=== PATIENT | female | born 1960 | race Caucasian/White ===

== ENCOUNTER 2016-06-13 08:01 | Day surgery (SDC) | payer OTHER ==
[~2016-06-13] VITALS: Ht 157.5 cm; Wt 65.3 kg
[2016-06-13] MEDS ORDERED: LIPITOR (08:56)
[2016-06-13] MEDS ORDERED: METFORMIN (08:56)
[2016-06-13] MEDS ORDERED: NAPROXEN (08:56)
[2016-06-13] MEDS ORDERED: GLIPIZIDE (08:56)
[2016-06-13 08:57] VITALS: Ht 157.5 cm; Wt 65.3 kg
[2016-06-13 09:24] VITALS: BP 121/66; PULSE 51; RESP 20
[2016-06-13] MEDS ORDERED: MIDAZOLAM 1 MG/ML 2 ML INJ ONE ×2 (09:44)
[2016-06-13] MEDS ORDERED: FENTAnyl 50 MCG/ML VIAL ONE (09:44)
[2016-06-13 10:00] VITALS: BP 108/61; PULSE 60; RESP 18
--- NOTE | 2016-06-13 11:27 | GILP ---
DATE OF PROCEDURE: 06/13/2016 PREOPERATIVE DIAGNOSIS: Screening colonoscopy to rule out colon polyps. POSTOPERATIVE DIAGNOSES: Minimal internal and minimal external hemorrhoids and a few diverticula, s mall sized, no bleeding noted. DESCRIPTION OF PROCEDURE: After informed written consent was obtained, the patient was asked to lie on the left lateral side' 4 mg Versed and 75 mcg of fentanyl was given as intravenous anesthesia. When the patient became somnolent, the Olympus video colonoscope was introduced into the rectum and scope was advanced all the way to the cecum. Appendiceal opening and ileocecal valve were identifie d. No polyps, no carcinoma, no colitis noted. Scope at this time was withdrawn. On the way out, c areful evaluation was carried out, and minimal internal hemorrhoids were noted on retroflexion. Whe n the scope was withdrawn, minimal external hemorrhoids noted which are small in size, low grade, no bleeding noted. The procedure was terminated. PLAN: Recommend a high fiber diet. Repeat colonoscopy in 10 years. Dictated By: ALEJANDRA ROMAN/NTS Conf#: [id number] DID#: [id number] CC: Comfort Owen MD;*EndCC*
== END 2016-06-13 13:57 | disposition home or self-care (01) ==
LOC: GIL 08:01
PROVIDERS: ATTEND Internal Medicine Gastroenterology
DX: Z12.11 Encounter for screening for malignant neoplasm of colon (principal); K64.8 Other hemorrhoids; K64.4 Residual hemorrhoidal skin tags; K57.90 Diverticulosis of intestine, part unspecified, without perforation or abscess without bleeding; E11.9 Type 2 diabetes mellitus without complications
CPT/HCPCS: 45378; J2250; J3010; Z7610

== ENCOUNTER 2016-12-24 14:57 | Emergency (ER) | payer OTHER ==
[~2016-12-24] VITALS: Wt 64.5 kg
[~2016-12-24 14:57] MED LIST: GLIPIZIDE; LIPITOR; METFORMIN; NAPROXEN
== END 2016-12-24 17:55 | disposition left against medical advice (07) ==
LOC: E/R 14:57
DX: Z53.21 Procedure and treatment not carried out due to patient leaving prior to being seen by health care provider (principal)